=== PATIENT | male | born 1955 | race African-American/Black ===

== ENCOUNTER 2017-11-13 12:17 | Emergency (ER) | payer MEDICARE ==
--- NOTE | 2017-11-13 13:44 | RAD ---
THREE VIEWS RIGHT FOOT: History: Stepped on something, right foot pain. FINDINGS: AP, lateral, and oblique views of the right foot obtained. There is no evidence of right foot fractures, subluxations, or bony lesions. IMPRESSION: Normal three views right foot. POS: [facility]
== END 2017-11-13 14:16 | disposition home or self-care (01) ==
LOC: ERS 12:17
DX: M79.671 Pain in right foot (principal); I10 Essential (primary) hypertension; Z79.899 Other long term (current) drug therapy; Z79.82 Long term (current) use of aspirin; W22.8XXA Striking against or struck by other objects, initial encounter

== ENCOUNTER 2017-12-06 09:51 | Inpatient (IN) | payer MEDICARE ==
[2017-12-06 10:59] LABS: #Basophils 0.1 thou/uL (0.0-0.2); #Eosinphils 0.4 thou/uL (0.0-0.7); #Lymphocytes 2.3 thou/uL (1.20-3.40); #Monocytes 0.6 thou/uL (0.11-0.59); #Neutrophils 6.3 thou/uL (1.40-6.50); %Basophils 1.2 % (0.0-1.0); %Eosinophils 4.3 % (0.0-10.0); %Lymphocytes 24.1 % (21.0-51.0); %Monocytes 5.7 % (0.0-10.0); %Neutrophils 64.8 % (42.0-75.0); Hemoglobin 13.9 g/dL (14.0-18.0); Mean Corpuscular HGB CONC 32.2 g/dL (32.0-36.0); Mean Corpuscular Hemoglobin 28.4 pg (27.0-31.0); Mean Corpuscular Volume 88.2 fL (78.0-98.0); Platelet Count 290 thou/uL (130-400); RBC Distribution Width 12.5 % (11.5-14.5); Red Blood Cell (RBC) Count 4.91 mill/uL (4.70-6.10); White Blood Cell (WBC) Count 9.7 thou/uL (4.8-10.8)
[2017-12-06] MEDS ORDERED: hydrALAZINE 20 MG/ML VIAL ONE ×2 (11:21→20:26)
[2017-12-06 11:22] LABS: ALT (SGPT) 10 U/L (8-55); AST (SGOT) 8 U/L (5-34); Albumin 3.7 g/dL (3.4-4.8); Alkaline Phosphatase 117 U/L (40-150); Anion Gap 14 mmol/L (10-20); BUN (Urea Nitrogen) 11 mg/dL (8.4-25.7); Bilirubin, Total 0.5 mg/dL (0.2-1.2); Calc. Creatinine Clearance 0 mL/min (70-130); Calcium 8.8 mg/dL (7.8-10.44); Carbon Dioxide 22 mmol/L (23-31); Chloride 103 mmol/L (98-107); Estimated GFR-MDRD 61; Globulin 4.1 g/dL (2.4-3.5); Glucose 258 mg/dL (80-115); Potassium 4.2 mmol/L (3.5-5.1); Protein, Total 7.8 g/dL (5.8-8.1); Sodium 135 mmol/L (136-145)
[2017-12-06] MEDS ORDERED: Meropenem 1 GM in Sodium Chloride 0.9% 100 ML IVPB SCH (11:30)
[2017-12-06] MEDS ORDERED: Adacel (T-DAP) 0.5 ML VIAL ONE (11:44)
[2017-12-06] MEDS ORDERED: Ondansetron HCl/PF 4 MG/2 ML Vial ONE ×2 (11:44→14:45)
--- NOTE | 2017-12-06 12:13 | RAD ---
3 VIEWS RIGHT FOOT: Date; 12/06/17 COMPARISON: 11/13/17. HISTORY: Wound to foot after stepping on something last month. FINDINGS: Three views of the right foot show a large wound along the lateral and plantar aspect of the foot. A small amount of air is seen in the soft tissues beneath this wound. No fracture or dislocation seen. No underlying osseous erosions are seen at this time. IMPRESSION: Wound along the lateral and plantar foot without underlying osseous abnormality. POS: [facility]
--- NOTE | 2017-12-06 13:52 | HP ---
HISTORY OF PRESENT ILLNESS: Chandan Downing is a 62-year-old black male patient who has been told he is prediabetic, but adamantly denies that he is diabetic. Past hospitalization reveals a hemoglobin A1c 04/2015 of 6.7%. Patient is on pravastatin, lisinopril, carvedilol, aspirin at home. The patien t injured his right foot several weeks ago in the yard. He presents to the emergency room with sever e diabetic infection of his right foot and x-rays revealed soft tissue injury without change of osteo myelitis. He is receiving intravenous antibiotics. His white count is 9, hemoglobin 13.9, GFR 61, c reatinine 1.43, glucose 258. ALLERGIES: None. TOBACCO: Cessation 4 months ago, 1 pack a day prior. ALCOHOL: None in the last four months, 1-2 beers a day prior to that. MEDICATIONS: Listed as pravastatin 20 mg at bedtime, lisinopril 10 mg b.i.d., carvedilol 12.5 mg b.i .d., aspirin 81 mg daily. PAST SURGICAL HISTORY: Noncontributory. PAST MEDICAL HISTORY: He reports prediabetes, but denies diabetes, hypertension. REVIEW OF SYSTEMS: Ten point noncontributory. PHYSICAL EXAMINATION: HEENT: Unremarkable. LUNGS: Clear to auscultation. CARDIAC: Regular rate and rhythm without murmur or gallop. ABDOMEN: Soft, nontender. EXTREMITIES: Palpable femoral, popliteal, dorsalis pedis, posterior tibial pulses. Right foot later ally reveals a severe infection with necrotic tissue and underlying plantar to the medial portion of his foot. It is very foul smelling. ASSESSMENT AND PLAN: 1. Severe diabetic infection, right foot. This has been neglected. Emergent irrigation, washout, w ound care. He is at risk for losing his leg in the future. We will attempt to salvage this with loc al wound care, wash out debridement as indicated. He require further debridement up the road. 2. Diabetes. He will need to be educated and I will ask Medical to admit him to tend to his medical problems and control his diabetes. 3. Tobacco abuse, cessation 4 months ago.
[2017-12-06] MEDS ORDERED: PROPOFOL 200 MG/20 ML VIAL ONE (14:45)
[2017-12-06] MEDS ORDERED: Lidocaine 1% PF 5 ML VIAL ONE (14:45)
[2017-12-06] MEDS ORDERED: Acetaminophen 325 MG TAB PO PRN (14:54)
[2017-12-06] MEDS ORDERED: Dextrose 50% Abboject 50 ML SYRINGE SLOW IVP PRN (15:02)
[2017-12-06] MEDS ORDERED: Dextrose 5% in Water 1,000 ML IV PRN (15:02)
[2017-12-06] MEDS ORDERED: VANCOMYCIN IVPB PRN (16:15)
[2017-12-06] MEDS ORDERED: Bupivacaine HCl 0.5%/Epinephrine 1:200,000/PF 30 ml Vial ONE (17:29)
[2017-12-06] MEDS ORDERED: Sodium Chloride 0.9% 0 ML ONE (17:30)
[2017-12-06] MEDS ORDERED: Fentanyl 100 MCG/2 ML VIAL ONE ×4 (17:56→20:22)
[2017-12-06] MEDS ORDERED: traMADol HCl 50 MG TAB PO PRN (19:12)
[2017-12-06] MEDS ORDERED: Ondansetron HCl/PF 4 MG/2 ML Vial IVP PRN (19:51)
[2017-12-06] MEDS ORDERED: Promethazine HCl 25 MG/ML VIAL IM PRN (19:51)
[2017-12-06] MEDS ORDERED: Meperidine HCl/PF 25 MG/ML VIAL SLOW IVP PRN (19:51)
[2017-12-06] MEDS ORDERED: Ketorolac Tromethamine 30 MG/ML VIAL IVP PRN (19:51)
[2017-12-06] MEDS ORDERED: Promethazine HCl 25 MG/ML VIAL SLOW IVP PRN (19:51)
[2017-12-06] MEDS ORDERED: Labetalol HCl 100 MG/20 ML VIAL ONE (20:09)
[2017-12-06] MEDS ORDERED: MEROPENEM 1 GM/50 ML 1 GM in Premix Bag 1 BAG IVPB SCH (20:45)
[2017-12-06] MEDS ORDERED: hydrALAZINE 20 MG/ML VIAL SLOW IVP SCH (20:45)
[2017-12-06] MEDS ORDERED: Labetalol HCl 100 MG/20 ML VIAL SLOW IVP SCH (20:45)
--- NOTE | 2017-12-06 20:53 | HP ---
CHIEF COMPLAINT: Foot sore. HISTORY OF PRESENT ILLNESS: This patient is a 62-year-old male, who states he has a history of high blood pressure, but no other major medical problems. The patient believes he stepped on something ab out a month ago. He was seen in the emergency room, treated and released. He states over the last 2 weeks his foot has developed a large ulcerated sore on the lateral aspect as well as some erythema o f the foot. He denies any pains associated with it, but he has had some drainage. He denies any fev ers or chills. He presented back to the emergency department today where imaging identified gas gang danette. Surgery was consulted and the plan is to take the patient directly to the operating room. He has received a dose of meropenem and vancomycin and cultures have been obtained. PAST MEDICAL HISTORY: Hypertension. PAST SURGICAL HISTORY: None. SOCIAL HISTORY: The patient denies drug, alcohol, or drug abuse. He says he is and retired . His daughter Erin will be his surrogate decision maker and he is a [employer]. FAMILY HISTORY: He states he does not know anything about his parents' medical history. ALLERGIES: None. HOME MEDICATIONS: He reports that only Zestril. Of note, the patient has been admitted in the past with hypertensive urgency due to noncompliance. REVIEW OF SYSTEMS: Only notable for nocturia x2 to 3. Denies any polyuria, polydipsia. Otherwise, a 10-system review is negative except for those things mentioned in the history of present illness. PHYSICAL EXAMINATION: VITAL SIGNS: Blood pressure 193/88, pulse 58, respirations 16, temperature 98.7, 100% on room air. GENERAL APPEARANCE: Age appropriate male. He is in no distress. He is a bit stoic. HEENT: PERRL. Has arcus senilis. Has no OP lesions. NECK: Supple and symmetric. CARDIOVASCULAR: Regular, without murmurs. LUNGS: Clear bilaterally with no wheezes or rales. ABDOMEN: Soft, nontender, nondistended. Positive bowel sounds. EXTREMITIES: Warm and dry. The right foot has a large ulcerated area over the lateral midfoot. Thi s appears to have a large area of necrotic skin on the plantar surface of the foot across to the inst ep area. There is some generalized erythema and desquamated skin superficially. LABORATORY DATA AND IMAGING: White count is 9.7, hemoglobin 13.9, platelets 290. Sodium 135, potass ium 4.2, chloride 103, CO2 of 22, BUN 11, creatinine is 1.43, glucose 258. Foot x-ray shows wound al odell the lateral plantar foot without underlying osseous abnormality. IMPRESSION AND PLAN: 1. Right foot ulcer in a patient with hyperglycemia, but no history of diabetes with evidence of gas gangrene. The patient is going to the OR with Dr. Pearson now for surgical debridement. He has rece ived vancomycin and meropenem. We will continue with those postoperatively. 2. Hyperglycemia. We will continue Accu-Cheks and sliding scale. 3. Hypertension. We will try to resume the patient's usual home medications which are in the system .
[2017-12-06] MEDS: Sodium Chloride 0.9% 1,000 ML IV SCH (21:57)
[2017-12-06] MEDS: Meropenem 1 GM in Sodium Chloride 0.9% 100 ML IVPB SCH (21:58)
[2017-12-06] MEDS: traMADol HCl 50 MG TAB PO PRN (22:02)
[2017-12-06] MEDS: Acetaminophen 500 MG TAB PO PRN (22:02)
[2017-12-06] MEDS: Carvedilol 6.25 MG TAB PO SCH (22:04)
[2017-12-06] MEDS: Lisinopril 10 MG TAB PO SCH (22:05)
[2017-12-06 22:17] VITALS: BMI 27.8
[2017-12-06] MEDS: Vancomycin HCl 1.25 GM in Sodium Chloride 0.9% 250 ML 250 ML IVPB SCH (23:49)
--- NOTE | 2017-12-07 01:25 | OP ---
DATE OF OPERATION: 12/06/2017 PREOPERATIVE DIAGNOSES: Severe diabetic right foot infection with gangrene of skin and soft tissues of lateral right foot with undermining flap plantar with a plantar ulcer near the mid foot arch, nonc ompliant diabetic. POSTOPERATIVE DIAGNOSES: Severe diabetic right foot infection with gangrene of skin and soft tissues of lateral right foot with undermining flap plantar with a plantar ulcer near the mid foot arch, non compliant diabetic. PROCEDURES: Debridement of skin and subcutaneous tissue of right lateral foot, diabetic gangrene inf ection. Excising skin and subcutaneous tissue sharply, 10-blade resection. Debridement of soft tiss ue of foot, washout. Wound packed open. Gauze dressing for wound VAC application tomorrow after ins pection. SURGEON: Roger Pearson MD ANESTHESIA: General LMA. PROCEDURE IN DETAIL: The patient was taken to the operating room where under general anesthesia, rig ht lower extremity was prepared with Betadine, draped in routine fashion. Gangrenous skin and subcut aneous tissue debrided sharply with a 10-blade scalpel, excising this, debriding surrounding chronic callus tissue. Deep cultures were obtained. The patient had a plantar ulcer communicating with this wound, mid arch with a flap of plantar skin , but apparently viable. Pulse irrigation was performed for 2.5 liters. Wound hemostasis gained with cautery. Surgicel was applied. Gauze dressi ng was packed into the wound for wound VAC application tomorrow after I inspected.
[2017-12-07] MEDS: Meropenem 1 GM in Sodium Chloride 0.9% 100 ML IVPB SCH (03:33)
[2017-12-07] MEDS: Sodium Chloride 0.9% 1,000 ML IV SCH (03:33)
[2017-12-07 05:18] LABS: #Basophils 0.1 thou/uL (0.0-0.2); #Eosinphils 0.4 thou/uL (0.0-0.7); #Lymphocytes 2.2 thou/uL (1.20-3.40); #Monocytes 0.7 thou/uL (0.11-0.59); #Neutrophils 7.2 thou/uL (1.40-6.50); %Basophils 0.8 % (0.0-1.0); %Eosinophils 3.8 % (0.0-10.0); %Lymphocytes 20.8 % (21.0-51.0); %Monocytes 6.2 % (0.0-10.0); %Neutrophils 68.4 % (42.0-75.0); Hemoglobin 13.1 g/dL (14.0-18.0); Mean Corpuscular HGB CONC 32.8 g/dL (32.0-36.0); Mean Corpuscular Hemoglobin 28.6 pg (27.0-31.0); Mean Corpuscular Volume 87.4 fL (78.0-98.0); Mean Platelet Volume 8.4 fL (7.4-10.4); Platelet Count 317 thou/uL (130-400); RBC Distribution Width 12.5 % (11.5-14.5); Red Blood Cell (RBC) Count 4.58 mill/uL (4.70-6.10); White Blood Cell (WBC) Count 10.6 thou/uL (4.8-10.8)
[2017-12-07 05:25] LABS: Hemoglobin A1c 9.4 % (4.0-6.0)
[2017-12-07 05:28] LABS: Anion Gap 12 mmol/L (10-20); BUN (Urea Nitrogen) 8 mg/dL (8.4-25.7); Calc. Creatinine Clearance 99 mL/min (70-130); Calcium 8.1 mg/dL (7.8-10.44); Carbon Dioxide 21 mmol/L (23-31); Chloride 105 mmol/L (98-107); Estimated GFR-MDRD 90; Glucose 202 mg/dL (80-115); Potassium 3.9 mmol/L (3.5-5.1); Sodium 134 mmol/L (136-145)
[2017-12-07] MEDS: Lisinopril 10 MG TAB PO SCH ×2 (07:59→20:40)
[2017-12-07] MEDS: Enoxaparin Sodium 40 MG/0.4 ML SYRINGE SC SCH (07:59)
[2017-12-07] MEDS: Carvedilol 6.25 MG TAB PO SCH ×2 (07:59→20:40)
[2017-12-07] MEDS: Acetaminophen 500 MG TAB PO PRN ×2 (08:01→14:25)
[2017-12-07] MEDS: traMADol HCl 50 MG TAB PO PRN ×3 (08:02→20:39)
--- NOTE | 2017-12-07 10:31 | PRG ---
DATE OF SERVICE: 12/07/2017 HISTORY OF PRESENT ILLNESS: Chandan Downing is doing well today. He is having minimal pain in his righ t foot postoperatively. PHYSICAL EXAMINATION: VITAL SIGNS: Temperature 98.3 degrees, 57, 159/92. LABORATORY: This morning his white count is 10, hemoglobin 13. His creatinine is normalized after h ydration 1.02, BUN 8, sodium 134, potassium 3.9. Cultures from his foot yesterday revealed Staphylococcus gram negative heena. The patient's exam is unremarkable today. His right foot wound is stable. Dressings were removed. Wound Care Team at bedside to place a wound VAC. ASSESSMENT AND PLAN: Severe diabetic infection, right foot. Continue intravenous antibiotics, await sensitivities. Dr. Mai has been consulted. Currently, the patient is on vancomycin and meropenem . The patient will need to have outpatient wound care arranged. He has transportation problems even though he lives in [place] and home health wound care will need to be arranged to change his wound VAC , right foot, 2-3 times per week. Pending his insurance coverage, if he has to attend [facility] for wound care, this could be done twice a week. I expect him to be discharged home on oral an tibiotics next week. The patient has a neuropathic plantar ulcer which will be difficult to heal. H opefully, this will heal with wound care. The patient has stopped smoking and has stopped drinking a lcohol four months ago. He has palpable pulses in his foot without evidence of significant vascular disease. Diabetes will need to be controlled. I will be out of town over the weekend and Sunday and Sunday of next week and Dr. Germain is covering the weekend and other surgeons covering the next week until I return. Please call if needed.
[2017-12-07] MEDS ORDERED: metFORMIN 500 MG TAB PO SCH (10:45)
[2017-12-07] MEDS: Vancomycin HCl 1.25 GM in Sodium Chloride 0.9% 250 ML 250 ML IVPB SCH ×2 (13:11→23:55)
[2017-12-07] MEDS: MEROPENEM 1 GM/50 ML 1 GM in Premix Bag 1 BAG IVPB SCH ×2 (13:12→19:49)
--- NOTE | 2017-12-07 13:29 | PDOC.PN ---
- Subjective Encounter Start Date: 12/07/17 Encounter Start Time: 11:10 Doing well post-op day one. Tolerating the wound vac. - Objective Resuscitation Status: Resuscitation Status FULL:Full Resuscitation Vital Signs & Weight: Vital Signs (12 hours) Temp Pulse Resp BP BP Pulse Ox 12/07/17 11:10 97.8 F 48 L 14 160/91 H 100 12/07/17 07:59 159/82 H 12/07/17 07:20 98.3 F 57 L 14 159/92 H 98 12/07/17 03:35 57 L 151/78 H Weight Admit Weight 205 lb Weight 205 lb I&O: 12/06/17 12/07/17 12/08/17 06:59 06:59 06:59 Intake Total 1196 Output Total 700 Balance 496 Result Diagrams: 12/07/17 04:40 12/07/17 04:40 Additional Labs: Accuchecks 12/07/17 12/07/17 11:03 07:09 POC Glucose 161 H 167 H Phys Exam - Physical Examination Constitutional: NAD Respiratory: no wheezing, no rales, no rhonchi, clear to auscultation bilateral Cardiovascular: RRR, no significant murmur, no rub Gastrointestinal: soft, non-tender, no distention, positive bowel sounds Musculoskeletal: no edema Right foot wound vac. Psychiatric: normal affect Deviation from normal: A little flat. Dx/Plan (1) Gangrene of right foot Code(s): I96 - GANGRENE, NOT ELSEWHERE CLASSIFIED Status: Acute Comment: Post-op debridement. Growing Staph and GN x 2. Continue Vanc and Meropenem. Continue wound vac. Management of DM. (2) Diabetes mellitus Code(s): E11.9 - TYPE 2 DIABETES MELLITUS WITHOUT COMPLICATIONS Status: Acute Comment: A1c 9.4. Discussed with patient. Now he says he has been on meds in the past for this. Will start oral metformin and diabetic diet. Continue Accucheck and SSI. (3) Hypertension Code(s): I10 - ESSENTIAL (PRIMARY) HYPERTENSION Status: Acute Comment: Resumed Lisinopril and Coreg although it sounds like he may not have been taking these. (4) History of hyperlipidemia Code(s): Z86.39 - PERSONAL HISTORY OF ENDO, NUTRITIONAL AND METABOLIC DISEASE Status: Acute Comment: Resume Pravachol. FLP in am. - Plan * IV abx and follow up cultures. Continue wound vac. * DC planning. Patient wants to return home. Will need HH. * [facility] counseling.
--- NOTE | 2017-12-07 17:59 | CON ---
DATE OF CONSULTATION: 12/07/2017 REASON FOR CONSULTATION: Right foot inflammatory process. HISTORY OF PRESENT ILLNESS: A 62-year-old patient with a history of hypertension, prior CVA and type 2 diabetes, admitted with aggressive infection and the lateral right foot superimposed on a chronic ulcer associated with erythema and pain. The patient had no headaches, no visual symptoms, sore thro at, odynophagia, dysphagia, no dyspnea, no abdominal pain, no diarrhea. The patient was admitted by Dr. Villegas. Dr. Pearson did a surgical procedure which consisted of debridement, but no evidence of amputation. Currently, Mr. Downing is feeling better. REVIEW OF SYSTEMS: A 10-point review of systems is as above. PAST MEDICAL HISTORY: Hypertension, prior CVA, diabetes type 2, neuropathy. PAST SURGICAL HISTORY: Negative. SOCIAL HISTORY: Retired, , lives in [place]. FAMILY HISTORY: Noncontributory. ALLERGIES: None. CURRENT MEDICATIONS: Tylenol, aspirin, Coreg, dextrose, Lovenox, glucagon, insulin, meropenem, and v ancomycin. SOCIAL HISTORY: Former smoker. He says he quit a few months ago. Some alcoholic beverage use, but not anymore. PHYSICAL EXAMINATION: VITAL SIGNS: T-max 98.4, blood pressure 160/90, pulse 48, respirations 14, O2 sat 100. SKIN: Shows the area of debridement and dressing was not removed since patient is fresh from the ope rating room. Peripheral IV access. No Ivey catheter. No lymphadenopathy. HEENT: Ocular movements conjugate. Oral cavity normal except for numerous missing teeth. NECK: Supple, no jugular vein distention. LUNGS: With symmetric air entry. HEART: S1, S2, regular rate with a soft aortic murmur. ABDOMEN: Soft, not distended or tender. No ascites. No bladder distention. EXTREMITIES: No joint inflammatory activity. Pulses are 1+ in dorsalis pedis and 1+ in popliteals. No edema. NEUROLOGIC: He is awake, oriented, follows commands. LABORATORY DATA: White cell count 9.7 and 10.6, hemoglobin 13.9, platelets 290 with a normal differe ntial. Sodium 135, creatinine 1.43. Liver profile normal, bilirubin 0.5, albumin 3.7. Microbiology with Staph aureus, gram negative heena and a second gram negative heena yet to be fully identified and s usceptibility tested. Two sets of blood cultures thus far negative. IMAGING STUDIES: Include a foot x-ray showed a large wound along the lateral plantar aspect of the f oot, small amount of air seen in soft tissues beneath the wound. No underlying osseous erosions note d. ASSESSMENT: Type 2 diabetes, neuropathy, and chronic ulcer, right foot with inflammatory changes whi ch led to admission and surgical debridement. DISCUSSION: The patient is on appropriate antimicrobial therapy. We will continue following the linda ceptibility results in terms of staging the lesion in the foot after debridement may be pham to order an MRI eventually to evaluate the deeper tissues. We will see how he progresses and make a decision soon. That should help us determine the duration of antimicrobial therapy needed. Nature of the re gimen to be established after the full microbiology results are available.
[2017-12-07] MEDS: metFORMIN 500 MG TAB PO SCH (18:20)
[2017-12-07 23:46] LABS: Vancomycin, Trough 13.3 ug/mL
[2017-12-08] MEDS: MEROPENEM 1 GM/50 ML 1 GM in Premix Bag 1 BAG IVPB SCH ×3 (04:12→20:46)
[2017-12-08 05:26] LABS: #Basophils 0.1 thou/uL (0.0-0.2); #Eosinphils 0.5 thou/uL (0.0-0.7); #Lymphocytes 2.1 thou/uL (1.20-3.40); #Monocytes 0.7 thou/uL (0.11-0.59); #Neutrophils 5.2 thou/uL (1.40-6.50); %Eosinophils 5.5 % (0.0-10.0); %Lymphocytes 24.5 % (21.0-51.0); %Monocytes 8.1 % (0.0-10.0); %Neutrophils 60.9 % (42.0-75.0); Hemoglobin 12.6 g/dL (14.0-18.0); Mean Corpuscular HGB CONC 32.3 g/dL (32.0-36.0); Mean Corpuscular Hemoglobin 28.6 pg (27.0-31.0); Mean Corpuscular Volume 88.5 fL (78.0-98.0); Mean Platelet Volume 8.3 fL (7.4-10.4); Platelet Count 269 thou/uL (130-400); RBC Distribution Width 12.5 % (11.5-14.5); White Blood Cell (WBC) Count 8.6 thou/uL (4.8-10.8)
[2017-12-08 05:41] LABS: Anion Gap 8 mmol/L (10-20); BUN (Urea Nitrogen) 12 mg/dL (8.4-25.7); Calc. Creatinine Clearance 92 mL/min (70-130); Calcium 8.3 mg/dL (7.8-10.44); Carbon Dioxide 23 mmol/L (23-31); Chloride 107 mmol/L (98-107); Cholesterol 156 mg/dl (< 200 Desired); Estimated GFR-MDRD 83; Glucose 161 mg/dL (80-115); HDL Cholesterol 26 mg/dL (>60 Neg Risk); LDL Cholesterol, Calculated 104 mg/dL; Potassium 4.4 mmol/L (3.5-5.1); Sodium 134 mmol/L (136-145); Triglycerides 129 mg/dL (Less than 150)
[2017-12-08] MEDS: Lisinopril 10 MG TAB PO SCH ×2 (07:57→20:45)
[2017-12-08] MEDS: Enoxaparin Sodium 40 MG/0.4 ML SYRINGE SC SCH (07:57)
[2017-12-08] MEDS: Carvedilol 6.25 MG TAB PO SCH ×2 (07:58→20:45)
[2017-12-08] MEDS: metFORMIN 500 MG TAB PO SCH ×2 (07:58→16:40)
[2017-12-08] MEDS: traMADol HCl 50 MG TAB PO PRN (11:53)
[2017-12-08] MEDS: Vancomycin HCl 1.25 GM in Sodium Chloride 0.9% 250 ML 250 ML IVPB SCH ×2 (12:29→23:54)
--- NOTE | 2017-12-08 13:38 | PDOC.PN ---
- Subjective Encounter Start Date: 12/08/17 Encounter Start Time: 10:25 Feel ok. No complaints. No pain. Tolerating meds. - Objective Resuscitation Status: Resuscitation Status FULL:Full Resuscitation Vital Signs & Weight: Vital Signs (12 hours) Temp Pulse Resp BP BP Pulse Ox 12/08/17 11:00 98.2 F 53 L 18 183/84 H 98 12/08/17 08:00 98.1 F 62 18 12/08/17 07:58 147/59 H 12/08/17 07:57 147/59 H 12/08/17 07:26 98.1 F 62 18 147/59 H 97 12/08/17 04:21 98.3 F 53 L 16 154/84 H 97 Weight Admit Weight 205 lb Weight 205 lb I&O: 12/07/17 12/08/17 12/09/17 06:59 06:59 06:59 Intake Total 1196 Output Total 700 Balance 496 Result Diagrams: 12/08/17 04:45 12/08/17 04:45 Additional Labs: Accuchecks 12/08/17 12/07/17 12/07/17 11:58 20:27 15:16 POC Glucose 138 H 112 H 162 H Phys Exam - Physical Examination Constitutional: NAD Respiratory: no wheezing, no rales, no rhonchi, clear to auscultation bilateral Cardiovascular: RRR, no significant murmur, no rub Gastrointestinal: soft, non-tender, no distention, positive bowel sounds Musculoskeletal: no edema Right foot with wound vac in place. Dx/Plan (1) Gangrene of right foot Code(s): I96 - GANGRENE, NOT ELSEWHERE CLASSIFIED Status: Acute Comment: Post-op debridement. Growing Staph and GN x 2. Continue Vanc and Meropenem. Continue wound vac. Management of DM. (2) Diabetes mellitus Code(s): E11.9 - TYPE 2 DIABETES MELLITUS WITHOUT COMPLICATIONS Status: Acute Comment: A1c 9.4. Discussed with patient. Now he says he has been on meds in the past for this. Will start oral metformin and diabetic diet. Continue Accucheck and SSI. (3) Hypertension Code(s): I10 - ESSENTIAL (PRIMARY) HYPERTENSION Status: Acute Comment: Resumed Lisinopril and Coreg although it sounds like he may not have been taking these. (4) History of hyperlipidemia Code(s): Z86.39 - PERSONAL HISTORY OF ENDO, NUTRITIONAL AND METABOLIC DISEASE Status: Acute Comment: Resume Pravachol. - Plan * Continue IV abx until cultures final. Dr. Mai on the case. * Anticipate DC around Sunday. Will need HH for wound care.
--- NOTE | 2017-12-08 14:19 | PRG ---
DATE OF SERVICE: 12/08/2017 SUBJECTIVE: Patient is doing well after foot debridement, says he has minimal pain. PHYSICAL EXAMINATION: VITAL SIGNS: Temperature is 98.1, pulse 62, blood pressure 147/59. EXTREMITIES: He has a wound VAC on, draining minimal fluid. LABORATORY DATA: His white count 8.6, H and H 12 and 38, platelet count 269. His glucose is 161, cr eatinine 1. IMPRESSION: Status post foot debridement, doing well. PLAN: Continue IV antibiotics and wound VAC.
[2017-12-08] MEDS: cloNIDine 0.1 MG TAB PO PRN ×2 (17:37→23:55)
--- NOTE | 2017-12-08 21:49 | EKG ---
Test Reason : Blood Pressure : / mmHG Vent. Rate : 055 BPM Atrial Rate : 055 BPM P-R Int : 150 ms QRS Dur : 086 ms QT Int : 470 ms P-R-T Axes : 057 051 171 degrees QTc Int : 449 ms Sinus bradycardia with sinus arrhythmia Possible Left atrial enlargement Abnormal ECG Confirmed by SATNAM BRANTLEY M.D. ([id number]), advertising editor TESS MORENO ([id number] on 12/08/2017 9:49:07 PM Referred By: Confirmed By:SATNAM BRANTLEY M.D.
[2017-12-08 23:22] LABS: Vancomycin, Trough 15.6 ug/mL
[2017-12-09] MEDS: MEROPENEM 1 GM/50 ML 1 GM in Premix Bag 1 BAG IVPB SCH ×3 (03:16→20:03)
[2017-12-09] MEDS: Lisinopril 10 MG TAB PO SCH (07:39)
[2017-12-09] MEDS: metFORMIN 500 MG TAB PO SCH ×2 (07:39→16:31)
[2017-12-09] MEDS: Enoxaparin Sodium 40 MG/0.4 ML SYRINGE SC SCH (07:40)
--- NOTE | 2017-12-09 09:52 | PDOC.PN ---
- Subjective Encounter Start Date: 12/09/17 Encounter Start Time: 09:50 Doing well. No more pain in his foot. - Objective Resuscitation Status: Resuscitation Status FULL:Full Resuscitation Vital Signs & Weight: Vital Signs (12 hours) Temp Pulse Resp BP BP Pulse Ox 12/09/17 08:00 98.5 F 49 L 16 158/85 H 96 12/09/17 07:39 158/85 H 12/09/17 03:57 57 L 16 158/83 H 94 L 12/09/17 00:00 98.3 F 51 L 16 191/79 H 98 12/08/17 23:55 191/93 H Weight Admit Weight 205 lb Weight 205 lb I&O: 12/08/17 12/09/17 12/10/17 06:59 06:59 06:59 Intake Total 1190 Output Total 700 Balance 490 Result Diagrams: 12/08/17 04:45 12/08/17 04:45 Additional Labs: Accuchecks 12/09/17 12/08/17 12/08/17 05:45 19:13 15:58 POC Glucose 120 H 115 H 109 12/08/17 11:58 POC Glucose 138 H Phys Exam - Physical Examination Constitutional: NAD Respiratory: no wheezing, no rales, no rhonchi Cardiovascular: RRR, no significant murmur, no rub Gastrointestinal: soft, non-tender, no distention, positive bowel sounds Musculoskeletal: no edema Modest output from the wound vac. Good pulses. Dx/Plan (1) Gangrene of right foot Code(s): I96 - GANGRENE, NOT ELSEWHERE CLASSIFIED Status: Acute Comment: Post-op debridement. Polymicrobial infection. Continue Vanc and Meropenem. ID on board. Continue wound vac. Management of DM. (2) Diabetes mellitus Code(s): E11.9 - TYPE 2 DIABETES MELLITUS WITHOUT COMPLICATIONS Status: Acute Comment: A1c 9.4. Blood sugars well controlled now on diabetic diet and metformin 500 bid. (3) Hypertension Code(s): I10 - ESSENTIAL (PRIMARY) HYPERTENSION Status: Acute Comment: BP still running high even on Lisinopril and Coreg. Will change the Lisinopril to qd with HCTZ. PRN Clonidine. (4) History of hyperlipidemia Code(s): Z86.39 - PERSONAL HISTORY OF ENDO, NUTRITIONAL AND METABOLIC DISEASE Status: Acute Comment: Resume Pravachol. - Plan * Disposition tomorrow per surgery. Will possibly need wound vac at home. ID to help with decision on abx regimen.
[2017-12-09] MEDS: Carvedilol 6.25 MG TAB PO SCH ×2 (10:50→20:03)
[2017-12-09] MEDS: Vancomycin HCl 1.25 GM in Sodium Chloride 0.9% 250 ML 250 ML IVPB SCH ×2 (12:06→23:18)
--- NOTE | 2017-12-09 15:25 | TCOM ---
DATE OF SERVICE: 12/09/2017 SUBJECTIVE: The patient feels good. He says really having no foot pain. He has a wound VAC on his foot. He is receiving vancomycin and meropenem. OBJECTIVE: VITAL SIGNS: His temperature is 98.5, pulse 49, blood pressure 158/85. GENERAL: He looks good. EXTREMITIES: He has good sensation in his toes. Wound VAC is in place. PLAN: Tomorrow, they are going to change the wound VAC and Dr. Lewis will make a decision as to wh ether he needs further debridement or home wound care.
[2017-12-09] MEDS: cloNIDine 0.1 MG TAB PO PRN (16:31)
[2017-12-09] MEDS: traMADol HCl 50 MG TAB PO PRN (20:02)
[2017-12-09] MEDS ORDERED: Carvedilol 6.25 MG TAB PO SCH (21:00)
[2017-12-09] MEDS: HumaLOG 300 UNITS/3 ML VIAL SC PRN (22:13)
[2017-12-10] MEDS: MEROPENEM 1 GM/50 ML 1 GM in Premix Bag 1 BAG IVPB SCH ×3 (03:44→20:20)
[2017-12-10] MEDS: metFORMIN 500 MG TAB PO SCH ×2 (07:56→17:06)
[2017-12-10] MEDS: Enoxaparin Sodium 40 MG/0.4 ML SYRINGE SC SCH (07:56)
[2017-12-10] MEDS: Lisinopril/Hydrochlorothiazide 20/25 mg Tablet PO SCH (07:57)
[2017-12-10] MEDS: traMADol HCl 50 MG TAB PO PRN ×2 (09:07→15:21)
[2017-12-10] MEDS: Acetaminophen 500 MG TAB PO PRN ×2 (09:07→15:21)
--- NOTE | 2017-12-10 10:23 | PRG ---
DATE OF SERVICE: 12/10/2017 Mr. Downing is postoperative day 4 following incision and drainage of a necrotic right foot wound. Thi s was performed by Dr. Pearson on 12/06/2017. He now has a wound VAC in place and has been on antibio tics using meropenem and vancomycin. Cultures reveal multiple organisms, all of which appear to be c overed by the antibiotics that he is on. The patient tells me he does have some discomfort in the fo ot, especially with ambulating. I encouraged him to minimize weightbearing on the foot in order to a llow appropriate healing. PHYSICAL EXAMINATION: VITAL SIGNS: Today he is afebrile, pulse is 59, blood pressure 152/70. EXTREMITIES: His right foot is examined with the Wound Care Team. When I removed his wound VAC ther e was a foul smell from within the wound. I then examined the wound and could not discern any defini te tissue that would be appropriate for debridement. I cannot see or feel any tracts that are not op ened. I could not definitely visualize any necrotic tissue. There is a fairly wide bridge of skin o n the plantar aspect of the foot that may have some necrosis on the underside of it. This is a bridg e over a large area of tissue and the hopes are that this will stay viable to allow healing in this a vu. Otherwise, he will have a huge wound on the plantar aspect of his foot that may not heal. The wound VAC was subsequently replaced. LABORATORY STUDIES: His last CBC was on the 8th and was essentially normal. His sugars have been we ll controlled, running between 118-177. ASSESSMENT: The patient's foot wound appears to be making appropriate progress. The smell within th e wound is somewhat concerning, but I cannot see anything that I would debride at this point. I chuyita mmended continued wound care and antibiotics. As soon as the home wound VAC can be arranged, he woul d be appropriate for discharge home and follow up as an outpatient.
[2017-12-10 11:35] LABS: Vancomycin, Trough 15.8 ug/mL
[2017-12-10] MEDS: Carvedilol 6.25 MG TAB PO SCH ×2 (11:57→18:59)
[2017-12-10] MEDS: Vancomycin HCl 1.25 GM in Sodium Chloride 0.9% 250 ML 250 ML IVPB SCH ×2 (12:09→23:54)
[2017-12-10] MEDS ORDERED: oxyCODONE 5 MG TAB PO PRN (12:09)
--- NOTE | 2017-12-10 17:01 | PDOC.PN ---
- Subjective Encounter Start Date: 12/10/17 Encounter Start Time: 12:45 Subjective: pt up in bed no problem - Objective Resuscitation Status: Resuscitation Status FULL:Full Resuscitation Vital Signs & Weight: Vital Signs (12 hours) Temp Pulse Resp BP Pulse Ox 12/10/17 15:42 98.3 F 54 L 16 188/93 H 99 12/10/17 10:57 98.4 F 52 L 16 177/81 H 97 12/10/17 08:00 98.4 F 59 L 16 12/10/17 07:35 98.4 F 59 L 16 152/70 H 96 Weight Admit Weight 205 lb Weight 205 lb I&O: 12/09/17 12/10/17 12/11/17 06:59 06:59 06:59 Intake Total 1190 1550 Output Total 700 1200 Balance 490 350 Result Diagrams: 12/08/17 04:45 12/08/17 04:45 Additional Labs: Accuchecks 12/10/17 12/10/17 12/10/17 15:41 10:55 06:25 POC Glucose 134 H 137 H 123 H 12/09/17 20:00 POC Glucose 153 H Phys Exam - Physical Examination Neck: no nodes, no JVD, supple, full ROM Respiratory: no wheezing, no rales, no rhonchi, wheezing present, clear to auscultation bilateral Cardiovascular: RRR, no significant murmur, no rub, gallop, irregular Dx/Plan (1) Gangrene of right foot Code(s): I96 - GANGRENE, NOT ELSEWHERE CLASSIFIED Status: Acute Comment: Post-op debridement. Polymicrobial infection. Continue Vanc and Meropenem. ID on board. Continue wound vac. Management of DM. (2) Hypertension Code(s): I10 - ESSENTIAL (PRIMARY) HYPERTENSION Status: Acute Comment: BP still running high even on Lisinopril and Coreg. Will change the Lisinopril to qd with HCTZ. PRN Clonidine. (3) Diabetes mellitus Code(s): E11.9 - TYPE 2 DIABETES MELLITUS WITHOUT COMPLICATIONS Status: Acute Comment: A1c 9.4. Blood sugars well controlled now on diabetic diet and metformin 500 bid. - Plan will continue iv abx -: will add norvasc * . Review of Systems - Review of Systems Respiratory: negative: Cough, Dry, Shortness of Breath, Hemoptysis, SOB with Excertion, Pleuritic Pain, Sputum, Wheezing Cardiovascular: negative: chest pain, palpitations, orthopnea, paroxysmal nocturnal dyspnea, edema, light headedness, other Gastrointestinal: negative: Nausea, Vomiting, Abdominal Pain, Diarrhea, Constipation, Melena, Hematochezia, Other - Medications/Allergies Allergies/Adverse Reactions: Allergies Allergy/AdvReac Type Severity Reaction Status Date / Time No Known Allergies Allergy Verified 12/07/17 03:07 Medications: Current Medications Acetaminophen (Tylenol) 650 mg PO Q4H PRN PRN Reason: Headache/Fever or Pain Acetaminophen (Tylenol) 1,000 mg PO Q6H PRN PRN Reason: Moderate to Severe Pain (6-10) Last Admin: 12/10/17 15:21 Dose: 1,000 mg Aspirin (Aspirin Chewable) 81 mg PO DAILY [facility] Last Admin: 12/10/17 07:57 Dose: 81 mg Carvedilol (Coreg) 12.5 mg PO BID [facility] Last Admin: 12/10/17 11:57 Dose: Not Given Clonidine (Catapres) 0.1 mg PO Q6H PRN PRN Reason: SBP >180 or DBP >100 Last Admin: 12/09/17 16:31 Dose: 0.1 mg Dextrose/Water (Dextrose 50%) 25 gm SLOW IVP PRN PRN PRN Reason: Hypoglycemia Enoxaparin Sodium (Lovenox) 40 mg SC 0900 [facility] Last Admin: 12/10/17 07:56 Dose: 40 mg Glucagon (Glucagon) 1 mg IM PRN PRN PRN Reason: Hypoglycemia Lisinopril/HCTZ (Prinizide 20-25) 1 tab PO DAILY [facility] Last Admin: 12/10/17 07:57 Dose: 1 tab Vancomycin HCl 1.25 gm/ Sodium (Chloride) 250 mls @ 166.667 mls/hr IVPB 1200, 2359 [facility] Last Admin: 12/10/17 12:09 Dose: 250 mls Dextrose/Water (D5w) 1,000 mls @ 0 mls/hr IV .Q0M PRN PRN Reason: Hypoglycemia Meropenem 1 gm/ Device 50 mls @ 100 mls/hr IVPB 0400,1200,2000 [facility] Last Admin: 12/10/17 12:09 Dose: 50 mls Insulin Human Lispro (Humalog) 0 units SC .MILD SLIDING SCALE PRN PRN Reason: Mild Correctional Scale Last Admin: 12/09/17 22:13 Dose: 2 unit Metformin HCl (Glucophage) 500 mg PO BID-[facility] Last Admin: 12/10/17 07:56 Dose: 500 mg Miscellaneous Medication (Pharmacy To Dose) 0 each IVPB DAILYPRN PRN PRN Reason: LABS Oxycodone HCl (Oxycodone Ir) 5 mg PO Q4H PRN PRN Reason: Severe Pain (7-10) Sodium Chloride (Flush - Normal Saline) 10 ml IVF Q12HR [facility] Last Admin: 12/10/17 12:09 Dose: 10 ml Sodium Chloride (Flush - Normal Saline) 10 ml IVF PRN PRN PRN Reason: Saline Flush Tramadol HCl (Ultram) 50 mg PO Q6H PRN PRN Reason: Moderate Pain (4-6) Tramadol HCl (Ultram) 100 mg PO Q6H PRN PRN Reason: Severe Pain (7-10) Last Admin: 12/10/17 15:21 Dose: 100 mg
[2017-12-10] MEDS: cloNIDine 0.1 MG TAB PO PRN ×2 (17:05→23:07)
[2017-12-11] MEDS ORDERED: Clopidogrel Bisulfate 75 MG TAB ONE (03:33)
[2017-12-11] MEDS: MEROPENEM 1 GM/50 ML 1 GM in Premix Bag 1 BAG IVPB SCH ×2 (03:45→11:05)
[2017-12-11] MEDS: Lisinopril/Hydrochlorothiazide 20/25 mg Tablet PO SCH (08:45)
[2017-12-11] MEDS: Amlodipine 10 MG TAB PO SCH (08:45)
[2017-12-11] MEDS: Enoxaparin Sodium 40 MG/0.4 ML SYRINGE SC SCH (09:53)
[2017-12-11] MEDS: metFORMIN 500 MG TAB PO SCH ×2 (09:53→17:34)
[2017-12-11] MEDS: Carvedilol 6.25 MG TAB PO SCH (11:09)
[2017-12-11] MEDS: HumaLOG 300 UNITS/3 ML VIAL SC PRN (12:25)
--- NOTE | 2017-12-11 14:28 | PDOC.PN ---
- Subjective Encounter Start Date: 12/11/17 Encounter Start Time: 12:30 Subjective: pt up in bed no complains - Objective Resuscitation Status: Resuscitation Status FULL:Full Resuscitation Vital Signs & Weight: Vital Signs (12 hours) Temp Pulse Resp BP BP Pulse Ox 12/11/17 11:03 98.6 F 50 L 14 178/81 H 97 12/11/17 08:45 48 L 171/86 H 12/11/17 08:00 98.3 F 48 L 14 171/86 H 98 12/11/17 07:40 98.3 F 48 L 14 12/11/17 04:00 98.4 F 44 L 18 158/92 H 98 Weight Admit Weight 205 lb Weight 205 lb I&O: 12/10/17 12/11/17 12/12/17 06:59 06:59 06:59 Intake Total 1550 Output Total 1200 Balance 350 Result Diagrams: 12/08/17 04:45 12/08/17 04:45 Additional Labs: Accuchecks 12/10/17 12/10/17 20:22 15:41 POC Glucose 137 H 134 H Phys Exam - Physical Examination Neck: no nodes, no JVD, supple, full ROM Respiratory: no wheezing, no rales, no rhonchi, wheezing present, clear to auscultation bilateral Cardiovascular: RRR, no significant murmur, no rub, gallop, irregular Gastrointestinal: soft, non-tender, no distention, positive bowel sounds Dx/Plan (1) Gangrene of right foot Code(s): I96 - GANGRENE, NOT ELSEWHERE CLASSIFIED Status: Acute Comment: Post-op debridement. Polymicrobial infection. Continue Vanc and Meropenem. ID on board. Continue wound vac. Management of DM. (2) Hypertension Code(s): I10 - ESSENTIAL (PRIMARY) HYPERTENSION Status: Acute Comment: BP still running high even on Lisinopril and Coreg. Will change the Lisinopril to qd with HCTZ. PRN Clonidine. (3) Diabetes mellitus Code(s): E11.9 - TYPE 2 DIABETES MELLITUS WITHOUT COMPLICATIONS Status: Acute Comment: A1c 9.4. Blood sugars well controlled now on diabetic diet and metformin 500 bid. - Plan will change to po abx, spoke with Id -: echo pending -: will discontinue his bb and will increase his GIUSEPPE * . Review of Systems - Review of Systems Respiratory: negative: Cough, Dry, Shortness of Breath, Hemoptysis, SOB with Excertion, Pleuritic Pain, Sputum, Wheezing Cardiovascular: negative: chest pain, palpitations, orthopnea, paroxysmal nocturnal dyspnea, edema, light headedness, other Gastrointestinal: negative: Nausea, Vomiting, Abdominal Pain, Diarrhea, Constipation, Melena, Hematochezia, Other Genitourinary: negative: Dysuria, Frequency, Incontinence, Hematuria, Retention , Other - Medications/Allergies Allergies/Adverse Reactions: Allergies Allergy/AdvReac Type Severity Reaction Status Date / Time No Known Allergies Allergy Verified 12/07/17 03:07 Medications: Current Medications Acetaminophen (Tylenol) 650 mg PO Q4H PRN PRN Reason: Headache/Fever or Pain Acetaminophen (Tylenol) 1,000 mg PO Q6H PRN PRN Reason: Moderate to Severe Pain (6-10) Last Admin: 12/10/17 15:21 Dose: 1,000 mg Amlodipine Besylate (Norvasc) 10 mg PO DAILY [facility] Last Admin: 12/11/17 08:45 Dose: 10 mg Aspirin (Aspirin Chewable) 81 mg PO DAILY [facility] Last Admin: 12/11/17 09:53 Dose: 81 mg Aspirin (Ecotrin) 81 mg PO DAILY [facility] Cephalexin (Keflex) 500 mg PO Q6HR [facility] Ciprofloxacin (Cipro) 500 mg PO BID@0600,2000 [facility] Clonidine (Catapres) 0.1 mg PO Q6H PRN PRN Reason: SBP >180 or DBP >100 Last Admin: 12/10/17 23:07 Dose: 0.1 mg Dextrose/Water (Dextrose 50%) 25 gm SLOW IVP PRN PRN PRN Reason: Hypoglycemia Enoxaparin Sodium (Lovenox) 40 mg SC 0900 [facility] Last Admin: 12/11/17 09:53 Dose: 40 mg Glucagon (Glucagon) 1 mg IM PRN PRN PRN Reason: Hypoglycemia Dextrose/Water (D5w) 1,000 mls @ 0 mls/hr IV .Q0M PRN PRN Reason: Hypoglycemia Insulin Human Lispro (Humalog) 0 units SC .MILD SLIDING SCALE PRN PRN Reason: Mild Correctional Scale Last Admin: 12/11/17 12:25 Dose: 3 unit Lisinopril (Zestril) 40 mg PO DAILY [facility] Lisinopril (Zestril) 20 mg PO NOW [facility] Metformin HCl (Glucophage) 500 mg PO BID-[facility] Last Admin: 12/11/17 09:53 Dose: 500 mg Metronidazole (Flagyl) 500 mg PO TID [facility] Miscellaneous Medication (Pharmacy To Dose) 0 each IVPB DAILYPRN PRN PRN Reason: LABS Oxycodone HCl (Oxycodone Ir) 5 mg PO Q4H PRN PRN Reason: Severe Pain (7-10) Pravastatin Sodium (Pravachol) 20 mg PO HS [facility] Sodium Chloride (Flush - Normal Saline) 10 ml IVF Q12HR [facility] Last Admin: 12/11/17 11:12 Dose: 10 ml Sodium Chloride (Flush - Normal Saline) 10 ml IVF PRN PRN PRN Reason: Saline Flush Tramadol HCl (Ultram) 50 mg PO Q6H PRN PRN Reason: Moderate Pain (4-6) Tramadol HCl (Ultram) 100 mg PO Q6H PRN PRN Reason: Severe Pain (7-10) Last Admin: 12/10/17 15:21 Dose: 100 mg
[2017-12-11] MEDS ORDERED: Lisinopril 20 MG TAB PO SCH (14:30)
[2017-12-11] MEDS: metroNIDAZOLE 500 MG TAB PO SCH ×2 (15:59→20:03)
[2017-12-11] MEDS: Vancomycin HCl 1.25 GM in Sodium Chloride 0.9% 250 ML 250 ML IVPB SCH (16:01)
[2017-12-11] MEDS: Cephalexin 250 MG CAP PO SCH ×2 (17:34→23:25)
[2017-12-11] MEDS ORDERED: Cephalexin 250 MG CAP PO SCH (18:00)
--- NOTE | 2017-12-11 18:09 | PRG ---
DATE OF SERVICE: 12/11/2017 SUBJECTIVE: He is feeling better, no respiratory symptoms, abdominal pain or diarrhea. Minimal foot pain. OBJECTIVE: VITAL SIGNS: Unremarkable except for some elevation in systolic blood pressure. He is afebrile. Th e foot wound with fresh looking red surface of the ulcer, a little bit of erythema around it. LUNGS: Clear. HEART: S1, S2, regular rate. ABDOMEN: Soft, not distended. LABORATORY DATA: White cell count 8.6, hemoglobin 12.6, platelets 269. The chemistry not remarkabl e. Microbiology with Klebsiella growing another gram-negative heena, Staph aureus, enterococcus, and 3 different anaerobes. ASSESSMENT AND DISCUSSION: Type 2 diabetes, neuropathy, chronic ulcer, right foot with inflammatory changes, status post surgical debridement. Now, the patient should be able to be discharged on oral antimicrobials, would choose Cipro, Keflex, and Flagyl for 4 weeks. We will consider outpatient MRI depending on the clinical progress. Monitor labs every 2 weeks with CBC, CRP and comprehensive metab olic panel.
--- NOTE | 2017-12-11 18:38 | PRG ---
DATE OF SERVICE: 12/11/2017 SUBJECTIVE: Mr. Downing is postoperative day #5, following incision and drainage of necrotic right kenyon t wound, performed by Dr. Pearson on 12/06/2017. He still has a wound VAC in place that was changed w ith my examination yesterday. He has no new complaints. PHYSICAL EXAMINATION: He is afebrile, pulse is 50, blood pressure 165/80. His examination is unchan ged. He still has a dressing intact on his right foot. LABORATORY STUDIES: No new labs. Microbiology reveals for aerobic and three different anaerobic org anisms. It does appear to be appropriately covered by the meropenem and vancomycin is on. ASSESSMENT: Patient who is stable following incision and drainage of a gangrenous right foot wound. A wound VAC is in place and is on intravenous antibiotics. I suspect that he will be stable for dis charge tomorrow on oral antibiotics. He should be able to be discharged on Cipro and Augmentin and p ossibly Flagyl to cover the anaerobic organisms. He was approved for a wound VAC late today and has home health nursing approved as well. I have asked Wound Care to coordinate dressing change tomorrow with Dr. Pearson. At that time, hopefully, home wound VAC to be placed in the patient to be discharg ed.
[2017-12-11] MEDS ORDERED: Cipro 250 MG TAB PO SCH ×2 (20:00)
[2017-12-11] MEDS: cloNIDine 0.1 MG TAB PO PRN (20:02)
[2017-12-11] MEDS: Ciprofloxacin 500 MG TAB PO SCH (20:03)
[2017-12-11] MEDS: Pravastatin Sodium 20 MG TAB PO SCH (20:03)
[2017-12-11] MEDS: traMADol HCl 50 MG TAB PO PRN (20:51)
[2017-12-12] MEDS: Ciprofloxacin 500 MG TAB PO SCH ×2 (05:44→19:50)
[2017-12-12] MEDS: Cephalexin 250 MG CAP PO SCH ×2 (05:44→11:37)
[2017-12-12] MEDS: metroNIDAZOLE 500 MG TAB PO SCH ×3 (08:25→20:52)
[2017-12-12] MEDS: Aspirin 81 mg Enteric Coated Tablet PO SCH (08:26)
[2017-12-12] MEDS: Enoxaparin Sodium 40 MG/0.4 ML SYRINGE SC SCH (08:26)
[2017-12-12] MEDS: Amlodipine 10 MG TAB PO SCH (08:26)
[2017-12-12] MEDS: Lisinopril 20 MG TAB PO SCH (08:26)
[2017-12-12] MEDS: metFORMIN 500 MG TAB PO SCH ×2 (08:26→16:57)
[2017-12-12] MEDS: traMADol HCl 50 MG TAB PO PRN ×2 (10:31→19:50)
[2017-12-12] MEDS: Acetaminophen 500 MG TAB PO PRN (11:37)
[2017-12-12] MEDS ORDERED: diphenhydrAMINE 25 MG CAP PO PRN (14:13)
--- NOTE | 2017-12-12 16:03 | PDOC.PN ---
- Subjective Encounter Start Date: 12/12/17 Encounter Start Time: 14:30 Subjective: pt up in bed no complains - Objective Resuscitation Status: Resuscitation Status FULL:Full Resuscitation Vital Signs & Weight: Vital Signs (12 hours) Temp Pulse Resp BP BP Pulse Ox 12/12/17 15:40 98.2 F 47 L 16 170/79 H 97 12/12/17 11:02 98.7 F 49 L 17 175/82 H 92 L 12/12/17 08:26 45 L 164/77 H 12/12/17 07:20 98.0 F 45 L 18 164/77 H 98 Weight Admit Weight 205 lb Weight 205 lb I&O: 12/11/17 12/12/17 12/13/17 06:59 06:59 06:59 Intake Total 1750 Output Total 2675 Balance -925 Result Diagrams: 12/08/17 04:45 12/08/17 04:45 Additional Labs: Accuchecks 12/12/17 12/12/17 12/12/17 15:39 11:10 05:41 POC Glucose 134 H 132 H 126 H 12/11/17 12/11/17 12/11/17 20:06 15:58 06:14 POC Glucose 143 H 146 H 130 H Phys Exam - Physical Examination left side of his face appears swollen compared to right Neck: no nodes, no JVD, supple, full ROM Respiratory: no wheezing, no rales, no rhonchi, wheezing present, clear to auscultation bilateral Cardiovascular: RRR, no significant murmur, no rub, gallop, irregular Gastrointestinal: soft, non-tender, no distention, positive bowel sounds Dx/Plan (1) Gangrene of right foot Code(s): I96 - GANGRENE, NOT ELSEWHERE CLASSIFIED Status: Acute Comment: Post-op debridement. Polymicrobial infection. Continue Vanc and Meropenem. ID on board. Continue wound vac. Management of DM. (2) Hypertension Code(s): I10 - ESSENTIAL (PRIMARY) HYPERTENSION Status: Acute Comment: BP still running high even on Lisinopril and Coreg. Will change the Lisinopril to qd with HCTZ. PRN Clonidine. (3) Diabetes mellitus Code(s): E11.9 - TYPE 2 DIABETES MELLITUS WITHOUT COMPLICATIONS Status: Acute Comment: A1c 9.4. Blood sugars well controlled now on diabetic diet and metformin 500 bid. (4) Allergic Code(s): T78.40XA - ALLERGY, UNSPECIFIED, INITIAL ENCOUNTER Status: Acute - Plan pt's left side of his face appears more swollen -: He has no problems with breathing or eating -: He noticed swelling 2hr after he got keflex -: will discontinue it and call ID -: benadryl give to pt. * . Review of Systems - Review of Systems Respiratory: negative: Cough, Dry, Shortness of Breath, Hemoptysis, SOB with Excertion, Pleuritic Pain, Sputum, Wheezing Cardiovascular: negative: chest pain, palpitations, orthopnea, paroxysmal nocturnal dyspnea, edema, light headedness, other Gastrointestinal: negative: Nausea, Vomiting, Abdominal Pain, Diarrhea, Constipation, Melena, Hematochezia, Other Genitourinary: negative: Dysuria, Frequency, Incontinence, Hematuria, Retention , Other - Medications/Allergies Allergies/Adverse Reactions: Allergies Allergy/AdvReac Type Severity Reaction Status Date / Time No Known Allergies Allergy Verified 12/07/17 03:07 Medications: Current Medications Acetaminophen (Tylenol) 1,000 mg PO Q6H PRN PRN Reason: Moderate to Severe Pain (6-10) Last Admin: 12/12/17 11:37 Dose: 1,000 mg Amlodipine Besylate (Norvasc) 10 mg PO DAILY [facility] Last Admin: 12/12/17 08:26 Dose: 10 mg Aspirin (Ecotrin) 81 mg PO DAILY [facility] Last Admin: 12/12/17 08:26 Dose: 81 mg Ciprofloxacin (Cipro) 500 mg PO 599,1999 [facility] Last Admin: 12/12/17 05:44 Dose: 500 mg Clonidine (Catapres) 0.1 mg PO Q6H PRN PRN Reason: SBP >180 or DBP >100 Last Admin: 12/11/17 20:02 Dose: 0.1 mg Dextrose/Water (Dextrose 50%) 25 gm SLOW IVP PRN PRN PRN Reason: Hypoglycemia Diphenhydramine HCl (Benadryl) 25 mg PO Q6H PRN PRN Reason: Itching/Allergy Last Admin: 12/12/17 14:36 Dose: 25 mg Enoxaparin Sodium (Lovenox) 40 mg SC 899 [facility] Last Admin: 12/12/17 08:26 Dose: 40 mg Glucagon (Glucagon) 1 mg IM PRN PRN PRN Reason: Hypoglycemia Dextrose/Water (D5w) 1,000 mls @ 0 mls/hr IV .Q0M PRN PRN Reason: Hypoglycemia Insulin Human Lispro (Humalog) 0 units SC .MILD SLIDING SCALE PRN PRN Reason: Mild Correctional Scale Last Admin: 12/11/17 12:25 Dose: 3 unit Lisinopril (Zestril) 40 mg PO DAILY [facility] Last Admin: 12/12/17 08:26 Dose: 40 mg Metformin HCl (Glucophage) 500 mg PO BID-[facility] Last Admin: 12/12/17 08:26 Dose: 500 mg Metronidazole (Flagyl) 500 mg PO TID [facility] Last Admin: 12/12/17 08:25 Dose: 500 mg Oxycodone HCl (Oxycodone Ir) 5 mg PO Q4H PRN PRN Reason: Severe Pain (7-10) Last Admin: 12/12/17 10:02 Dose: 5 mg Pravastatin Sodium (Pravachol) 20 mg PO [facility] Last Admin: 12/11/17 20:03 Dose: 20 mg Sodium Chloride (Flush - Normal Saline) 10 ml IVF Q12HR [facility] Last Admin: 12/12/17 08:26 Dose: Not Given Sodium Chloride (Flush - Normal Saline) 10 ml IVF PRN PRN PRN Reason: Saline Flush Tramadol HCl (Ultram) 50 mg PO Q6H PRN PRN Reason: Moderate Pain (4-6) Tramadol HCl (Ultram) 100 mg PO Q6H PRN PRN Reason: Severe Pain (7-10) Last Admin: 12/12/17 10:31 Dose: 100 mg
[2017-12-12] MEDS ORDERED: hydrALAZINE 25 MG TAB PO SCH (16:15)
--- NOTE | 2017-12-12 16:51 | PRG ---
DATE OF SERVICE: 12/12/2017 SUBJECTIVE: Mr. Chandan Downing is doing well. A wound VAC was changed on his foot. The wound looks g ood and it is stable. The plantar flap is and healing. There is no active infection. He has a plantar arch neuropathic ulcer and a large open wound in the medial foot. OBJECTIVE: VITAL SIGNS: 98.7, 49, 175/82. LABORATORY DATA: White count 8, hemoglobin 12. Hemoglobin A1c is 9.4. Accu-Cheks 132, 126. Blood cultures negative. ASSESSMENT AND PLAN: He has mixed infection, Klebsiella, gram negative heena, Staphylococcus aureus an d Enterococcus. He is to be discharged home today, but he had some facial swelling thought secondary to cephalosporins, Keflex and this was discontinued. He will continue on Flagyl and Cipro. He shou ld follow up in my office in 2-3 weeks. Home health will be doing his wound care. The patient is re cathryn to go home on oral antibiotics any time from a surgical standpoint, I will see him as needed this hospitalization.
[2017-12-12] MEDS: Pravastatin Sodium 20 MG TAB PO SCH (19:50)
[2017-12-13] MEDS: Ciprofloxacin 500 MG TAB PO SCH (05:31)
[2017-12-13] MEDS: Lisinopril 20 MG TAB PO SCH (08:45)
[2017-12-13] MEDS: Aspirin 81 mg Enteric Coated Tablet PO SCH (08:46)
[2017-12-13] MEDS: metroNIDAZOLE 500 MG TAB PO SCH ×2 (08:46→15:58)
[2017-12-13] MEDS: metFORMIN 500 MG TAB PO SCH ×2 (08:46→17:55)
[2017-12-13] MEDS: Amlodipine 10 MG TAB PO SCH (08:46)
[2017-12-13] MEDS: Enoxaparin Sodium 40 MG/0.4 ML SYRINGE SC SCH (08:47)
[2017-12-13] MEDS: traMADol HCl 50 MG TAB PO PRN ×2 (08:48→15:58)
[2017-12-13] MEDS ORDERED: hydrALAZINE 25 MG TAB PO SCH (09:00)
[2017-12-13] MEDS ORDERED: cloNIDine 0.1 MG TAB PO SCH (09:00)
[2017-12-13 12:29] VITALS: TEMP 98.1
--- NOTE | 2017-12-13 13:13 | PDOC.PN ---
- Subjective Encounter Start Date: 12/13/17 Encounter Start Time: 09:30 Subjective: pt up in bed no complains - Objective Resuscitation Status: Resuscitation Status FULL:Full Resuscitation Vital Signs & Weight: Vital Signs (12 hours) Temp Pulse Pulse Pulse Resp BP BP 12/13/17 11:48 66 12/13/17 11:35 98.1 F 51 L 16 12/13/17 09:46 173/72 H 12/13/17 08:46 49 L 173/72 H 12/13/17 08:45 173/72 H 12/13/17 08:43 67 66 173/72 H 12/13/17 07:45 98.5 F 49 L 16 12/13/17 03:40 98.4 F 50 L 14 BP BP Pulse Ox Pulse Ox Pulse Ox 12/13/17 11:48 170/72 H 97 12/13/17 11:35 164/72 H 98 12/13/17 09:46 12/13/17 08:46 12/13/17 08:45 12/13/17 08:43 97 95 12/13/17 07:45 173/72 H 96 12/13/17 03:40 152/76 H 97 Weight Admit Weight 205 lb Weight 205 lb I&O: 12/12/17 12/13/17 12/14/17 06:59 06:59 06:59 Intake Total 1750 400 Output Total 2675 475 Balance -925 -75 Result Diagrams: 12/08/17 04:45 12/08/17 04:45 Additional Labs: Accuchecks 12/13/17 12/13/17 12/12/17 11:31 05:41 20:51 POC Glucose 116 H 121 H 122 H 12/12/17 15:39 POC Glucose 134 H Phys Exam - Physical Examination Neck: no nodes, no JVD, supple, full ROM Respiratory: no wheezing, no rales, no rhonchi, wheezing present, clear to auscultation bilateral Cardiovascular: RRR, no significant murmur, no rub, gallop, irregular Dx/Plan (1) Gangrene of right foot Code(s): I96 - GANGRENE, NOT ELSEWHERE CLASSIFIED Status: Acute Comment: Post-op debridement. Polymicrobial infection. Continue Vanc and Meropenem. ID on board. Continue wound vac. Management of DM. (2) Hypertension Code(s): I10 - ESSENTIAL (PRIMARY) HYPERTENSION Status: Acute Comment: BP still running high even on Lisinopril and Coreg. Will change the Lisinopril to qd with HCTZ. PRN Clonidine. (3) Diabetes mellitus Code(s): E11.9 - TYPE 2 DIABETES MELLITUS WITHOUT COMPLICATIONS Status: Acute Comment: A1c 9.4. Blood sugars well controlled now on diabetic diet and metformin 500 bid. (4) Allergic Code(s): T78.40XA - ALLERGY, UNSPECIFIED, INITIAL ENCOUNTER Status: Acute - Plan pt's left facial swelling has improved -: possible discharge home today * . Review of Systems - Review of Systems Respiratory: negative: Cough, Dry, Shortness of Breath, Hemoptysis, SOB with Excertion, Pleuritic Pain, Sputum, Wheezing Cardiovascular: negative: chest pain, palpitations, orthopnea, paroxysmal nocturnal dyspnea, edema, light headedness, other Gastrointestinal: negative: Nausea, Vomiting, Abdominal Pain, Diarrhea, Constipation, Melena, Hematochezia, Other Genitourinary: negative: Dysuria, Frequency, Incontinence, Hematuria, Retention , Other - Medications/Allergies Allergies/Adverse Reactions: Allergies Allergy/AdvReac Type Severity Reaction Status Date / Time cephalexin [From Keflex] Allergy Intermediate Swollen Verified 12/13/17 18:41 Lips
[2017-12-13 16:47] VITALS: BP 176/88
== END 2017-12-13 17:30 | disposition home or self-care (01) | DRG 264 ==
LOC: ERS 09:51 → SDC/OP 16:22 → SURG A 20:40
PROVIDERS: ADMIT Internal Medicine; ATTEND Internal Medicine
PROC: 0JBQ0ZZ Excision of Right Foot Subcutaneous Tissue and Fascia, Open Approach (ICD-10-PCS; principal; 2017-12-06)
DX: E11.52 Type 2 diabetes mellitus with diabetic peripheral angiopathy with gangrene (principal); L97.412 Non-pressure chronic ulcer of right heel and midfoot with fat layer exposed; E11.621 Type 2 diabetes mellitus with foot ulcer; I10 Essential (primary) hypertension; Z79.82 Long term (current) use of aspirin; E11.65 Type 2 diabetes mellitus with hyperglycemia; Z87.891 Personal history of nicotine dependence; Z91.14 Patient's other noncompliance with medication regimen; Z86.73 Personal history of transient ischemic attack (TIA), and cerebral infarction without residual deficits; E11.42 Type 2 diabetes mellitus with diabetic polyneuropathy; Z79.4 Long term (current) use of insulin; B95.61 Methicillin susceptible Staphylococcus aureus infection as the cause of diseases classified elsewhere; B96.1 Klebsiella pneumoniae [K. pneumoniae] as the cause of diseases classified elsewhere; B95.2 Enterococcus as the cause of diseases classified elsewhere; E78.5 Hyperlipidemia, unspecified; T36.1X5A Adverse effect of cephalosporins and other beta-lactam antibiotics, initial encounter
CPT/HCPCS: 36415; 36416; 80048; 80053; 80061; 80202; 83036; 83605; 85025; 87040; 87070; 87077; 87186; 87205; 90471; 90715; 93005; 93306; 96365; 96367; 96375; A4216; G8978-GP-CL; G8979-GP-CJ; J0360; J0670; J1650; J2001; J2185; J2270; J2405; J2704; J3010; J3370; J3490; J7050